=== PATIENT | male | born 1995 | race Caucasian/White ===

== ENCOUNTER 2017-07-25 23:21 | Emergency (ER) | payer OTHER ==
[2017-07-25 23:26] VITALS: RESP 16
[2017-07-25] MEDS ORDERED: AMOXICILLIN/CLAVULANATE POT 875/125 MG TAB PO ONE (23:59)
--- NOTE | 2017-07-26 00:08 | EDPHY ---
General Narrative: CHIEF COMPLAINT: Dog bite to left ring finger HISTORY OF PRESENT ILLNESS: Patient complains of dog bite to left ring finger at 4:00 p.m. today. This was a friend's dog. This is a vaccinated dog without health problems. He said that he was given the dog some food and attempted to pull it out of the dog's mouth again. He says it was his fault. Moderate pain. It is right in the IP joint of the left ring finger, volar. Moderate bleeding. No numbness or tingling. No weakness. No difficulty bending or straightening the finger. No injury elsewhere. No other associated complaints or modifying factors. Tetanus is up-to-date. TIME OF INJURY: 4:00 p.m. today TETANUS STATUS: Up-to-date MEDICAL/SURGICAL/SOCIAL HISTORY: Pertinent positive is Crohn's in remission on Remicade every 8 weeks REVIEW OF SYSTEMS: Ten systems reviewed and are negative unless otherwise noted in the HPI EXAMINATION General Appearance: Alert, no distress Head: normocephalic, atraumatic Cardiovascular: Pulses normal throughout. Symmetric radial pulses 2+. Brisk cap refill Neurological: A&O, sensory symmetric, strength symmetric. Good strength of the interossei muscles. No wrist drop. Skin: Warm and dry, no rash. There is a puncture to the left ring finger, volar over the IP joint. Minimal bleeding. Neurovascular intact distally. No appreciated foreign body Extremities: Nontender, no pedal edema DIFFERENTIAL DIAGNOSES: Including but not limited to dog bite, puncture wound, finger laceration MDM: 12:01 a.m. Dog bite to the left ring finger, volar over the IP joint. He is neurovascular intact with good flexion extension with no obvious tendon injury. There is no foreign body. He is up-to-date on his immunizations. The dog that bit him is up-to-date on their immunizations. I have administered a digital block. Proceed with copious irrigation. I have started Augmentin prophylaxis. 12:35 a.m. Dog bite to left ring finger. Wound has been copiously irrigated. Wound was loosely closed with 1 simple interrupted suture. Augmentin prophylaxis. Follow up with or number, hand surgeon or in the emergency department on Thursday for recheck. Follow up here in 7-10 days for suture removal. ED precautions discussed. I stressed the importance of close follow-up and antibiotics adherence due to the Remicade he takes for Crohn's. He voices understanding of this. PROCEDURE: Digital Block Indication: Dog bite to finger Consent: Verbal Location: Left ring finger Anesthesia: Lidocaine 1% plain, 0.25% Marcaine plain, 5mL Description: Base of the finger was prepped. The above was infused without difficulty. Tolerated well. Good anesthesia. Complications: None PROCEDURE: Laceration repair Consent: Verbal Location: Left ring finger, volar, PIP joint Length of repair: 1.5 cm Complexity: Simple Layer involvement: Single Anesthesia: Digital block Irrigation: Extensive Debridement: None Procedure description: Following good anesthesia, the wound was copiously irrigated. Wound bed was explored and there is no foreign body noted. Wound borders were loosely approximated with 1 suture due to puncture from dog bite Suture/Staple material: 5-0 Prolene, 1 simple interrupted suture Wound care: Routine as discussed Suture/Staple removal: 7-10 Days ED Precautions: Worsening pain. Erythema, edema, cyanosis, pallor, paresthesia or anesthesia. - History Smoking Status: Never smoked - Objective Vital Signs: Initial Vital Signs Temperature (C) 97.9 F 07/25/17 23:23 Heart Rate 81 07/25/17 23:23 Respiratory Rate 16 07/25/17 23:23 Blood Pressure 150/70 H 07/25/17 23:23 O2 Sat (%) 95 07/25/17 23:23 O2 Delivery Mode Room Air Allergies/Adverse Reactions: No Known Allergies Allergy (Unverified 07/25/17 23:26) Home Medications: Medication Instructions Recorded Remicade Inj 100 mg (*) 07/25/17 Amoxicillin/Clavulanate Pot 875 mg PO BID #20 tab 07/26/17 [Augmentin 875 MG TAB (*)] Medications Given: Discontinued Medications Amoxicillin/Clavulanate Potassium (Augmentin 875mg) 875 mg PO EDNOW ONE PRN Reason: Protocol Stop: 07/26/17 00:00 Last Admin: 07/26/17 00:11 Dose: 875 mg Departure - Departure Disposition: Home, Routine, Self-Care Clinical Impression: Dog bite of finger Qualifiers: Encounter type: initial encounter Qualified Code(s): S61.259A - Open bite of unspecified finger without damage to nail, initial encounter Condition: Good Instructions: Animal Bite (ED) Additional Instructions: 1. Daily wound care as discussed 2. Return to ER in 48-72 hours for recheck and possible delayed closure 3. Hand surgeon follow-up 4. ED precautions as discussed Referrals: NONE *PRIMARY CARE P,. [Primary Care Provider] - As per Instructions [facility] [Clinic] - As per Instructions Blanca Rogers MD [Medical Doctor] - As per Instructions Prescriptions: Amoxicillin/Clavulanate Pot [Augmentin 875 MG TAB (*)] 875 mg PO BID #20 tab
[2017-07-26 00:57] VITALS: BP 133/72; PULSE 69; TEMP 98.4; O2SAT 97
== END 2017-07-26 00:56 | disposition home or self-care (01) ==
PROC: 0HQGXZZ Repair Left Hand Skin, External Approach (ICD-10-PCS; principal; 2017-07-25)
DX: S61.255A Open bite of left ring finger without damage to nail, initial encounter (principal); W54.0XXA Bitten by dog, initial encounter; Y99.8 Other external cause status
CPT/HCPCS: L3925